=== PATIENT | female | born 1995 | race Caucasian/White ===

== ENCOUNTER 2018-05-12 10:27 | Observation (INO) | payer OTHER, MEDICAID ==
[~2018-05-12] VITALS: Ht 167.6 cm; Wt 87.5 kg
[2018-05-12 11:10] VITALS: BP 127/71
[2018-05-12 12:06] LABS: BASOPHILS % (AUTO) 0.5 % (0.0-5.0); EOSINOPHILS % (AUTO) 0.1 % (0.0-8.0); HEMATOCRIT 43.6 % (36-48); LYMPHOCYTES % (AUTO) 13.2 % (21.0-51.0); MEAN CORPUSCULAR HEMOGLOBIN 33.4 pg (27.0-33.0); MEAN CORPUSCULAR HGB CONC 32.9 g/dL (32.0-36.0); MEAN CORPUSCULAR VOLUME 101.6 fL (79-99); MONOCYTES % (AUTO) 5.1 % (3.0-13.0); NEUTROPHILS % (AUTO) 81.1 % (40.0-77.0); NUCLEATED RED BLOOD CELLS 0.1 % (0.0-0.19); PLATELET COUNT (AUTO) 194 K/uL (130-400); RED BLOOD CELL COUNT(AUTO) 4.29 MIL/uL (4.00-5.50); RED CELL DISTRIBUTION WIDTH 13.8 % (11.0-15.5); WHITE BLOOD COUNT (AUTO) 8.3 K/uL (4.8-10.8)
[2018-05-12] MEDS ORDERED: SULF1TAB3 PO (12:28)
[2018-05-12] MEDS ORDERED: ONDA4TAB10 PO (12:28)
[2018-05-12] MEDS: DEXTROSE 5%-LACTATED RINGERS 1,000 ML IV SCH ×3 (12:29→23:07)
[2018-05-12] MEDS: ONDANSETRON HCL 4 MG/2 ML VIAL IVP PRN ×2 (12:33→18:06)
[2018-05-12 12:57] LABS: CREATININE 0.7 mg/dL (0.5-1.5); POTASSIUM 4.1 mmol/L (3.5-5.1)
[2018-05-12 16:00] VITALS: BP 111/62
[2018-05-12 19:25] VITALS: BP 116/61
[2018-05-12 23:15] VITALS: BP 105/68
[2018-05-13 03:25] VITALS: BP 111/60
[2018-05-13] MEDS: DEXTROSE 5%-LACTATED RINGERS 1,000 ML IV SCH ×4 (03:45→22:53)
[2018-05-13 07:26] VITALS: BP 110/50
[2018-05-13 11:14] VITALS: BP 137/57
[2018-05-13] MEDS: ONDANSETRON HCL 4 MG/2 ML VIAL IVP PRN (13:47)
[2018-05-13 15:35] VITALS: BP 118/62
[2018-05-13 20:00] VITALS: BP 101/50
[2018-05-14 00:30] VITALS: BP 110/58
[2018-05-14 03:50] VITALS: BP 106/53
[2018-05-14] MEDS: DEXTROSE 5%-LACTATED RINGERS 1,000 ML IV SCH (04:12)
[2018-05-14 08:18] VITALS: BP 134/64
[2018-05-14 11:22] VITALS: BP 125/54
== END 2018-05-14 11:50 | disposition home or self-care (01) ==
LOC: EDH 10:27 → INTOOBSV 10:28 → OBSVTOIN 10:28 → WSH 10:28
PROVIDERS: ADMIT Specialist; ATTEND Specialist
DX: O21.9 Vomiting of pregnancy, unspecified (principal); Z3A.16 16 weeks gestation of pregnancy; Z23 Encounter for immunization
CPT/HCPCS: 36415; 80048; 85025; 96361 ×3; 96374; 96376 ×2; 99285; G0008; G0378 ×49; J2405 ×3; Q2038

== ENCOUNTER 2018-06-19 11:39 | Observation (INO) | payer OTHER, MEDICAID ==
[~2018-06-19] VITALS: Ht 167.6 cm; Wt 86.6 kg
[~2018-06-19 11:39] MED LIST: ONDA4TAB10 PO; SULF1TAB3 PO
[2018-06-19 14:02] LABS: APPEARANCE,URINE CLEAR (CLEAR); BILIRUBIN,URINE SMALL (NEGATIVE); COLOR,URINE YELLOW (YELLOW); GLUCOSE, URINE (UA) NEGATIVE (NEGATIVE); KETONES,URINE >=80 mg/dL (NEGATIVE); LEUKOCYTE ESTERASE ,URINE TRACE (NEGATIVE); NITRATE,URINE NEGATIVE (NEGATIVE); OCCULT BLOOD,URINE NEGATIVE (NEGATIVE); PROTEIN,URINE TRACE (NEGATIVE)
[2018-06-19] MEDS ORDERED: LACTATED RINGERS 1000ML IV SCH (14:15)
[2018-06-19] MEDS ORDERED: PROMETHAZINE HCL 25 MG/ML 1ML AMPULE IM SCH (14:15)
[2018-06-19 14:19] LABS: BACTERIA,URINE Rare /HPF (None Seen); MUCUS,URINE Rare LPF (None Seen); RBC,URINE 0-1 /HPF (0-1); SQUAMOUS EPITHELIAL CELL,UR Rare /HPF (0-2); WBC,URINE 0-1 /HPF (0-1)
[2018-06-19] MEDS ORDERED: PROMETHAZINE HCL 25 MG/ML 1ML AMPULE IM ONE (14:42)
[2018-06-19] MEDS ORDERED: LACTATED RINGERS 1000ML 1,000 ML IV SCH (15:15)
== END 2018-06-19 15:00 | disposition home or self-care (01) ==
LOC: LDH 11:56
PROVIDERS: ADMIT Specialist; ATTEND Specialist
DX: O21.2 Late vomiting of pregnancy (principal); R19.7 Diarrhea, unspecified; O26.893 Other specified pregnancy related conditions, third trimester; Z3A.22 22 weeks gestation of pregnancy
CPT/HCPCS: 81001; G0378 ×4; J2550; J7120; 96360; 96361

== ENCOUNTER 2018-09-13 15:49 | Observation (INO) | payer OTHER, MEDICAID ==
[~2018-09-13] VITALS: Ht 167.6 cm; Wt 95.7 kg
[2018-09-13 16:37] LABS: APPEARANCE,URINE Clear (CLEAR); BILIRUBIN,URINE Negative (NEGATIVE); COLOR,URINE Yellow (YELLOW); GLUCOSE, URINE (UA) Negative (NEGATIVE); KETONES,URINE 15 mg/dL (NEGATIVE); LEUKOCYTE ESTERASE ,URINE Moderate (NEGATIVE); NITRATE,URINE Negative (NEGATIVE); OCCULT BLOOD,URINE Negative (NEGATIVE); PROTEIN,URINE Negative (NEGATIVE)
[2018-09-13] MEDS: LACTATED RINGERS 1000ML IV SCH ×2 (16:48→17:20)
[2018-09-13 16:54] LABS: BACTERIA,URINE Rare /HPF (None Seen); RBC,URINE 0-1 /HPF (0-1)
[2018-09-13 16:55] LABS: SQUAMOUS EPITHELIAL CELL,UR Moderate /HPF (0-2)
[2018-09-13] MEDS ORDERED: TERBUTALINE SULFATE VIAL 1MG/ML SQ ONE (17:29)
[2018-09-13] MEDS ORDERED: TERBUTALINE SULFATE VIAL 1MG/ML SQ SCH (17:30)
== END 2018-09-13 18:45 | disposition home or self-care (01) ==
LOC: EDH 15:49 → INTOOBSV 15:50 → LDH 15:50
PROVIDERS: ADMIT Specialist; ATTEND Specialist
DX: O26.893 Other specified pregnancy related conditions, third trimester (principal); R10.9 Unspecified abdominal pain; Z3A.34 34 weeks gestation of pregnancy
CPT/HCPCS: 81001; 96372; 99284; G0378 ×3; J3105; J7120; 96360

== ENCOUNTER 2018-09-22 11:09 | Observation (INO) | payer OTHER, MEDICAID ==
[~2018-09-22] VITALS: Ht 167.6 cm; Wt 98.0 kg
[2018-09-22 11:59] LABS: APPEARANCE,URINE Clear (CLEAR); BASOPHILS % (AUTO) 0.6 % (0.0-5.0); BILIRUBIN,URINE Negative (NEGATIVE); COLOR,URINE Yellow (YELLOW); EOSINOPHILS % (AUTO) 0.6 % (0.0-8.0); GLUCOSE, URINE (UA) Negative (NEGATIVE); HEMATOCRIT 35.2 % (36-48); KETONES,URINE Trace mg/dL (NEGATIVE); LEUKOCYTE ESTERASE ,URINE Moderate (NEGATIVE); LYMPHOCYTES % (AUTO) 18.5 % (21.0-51.0); MEAN CORPUSCULAR HEMOGLOBIN 30.1 pg (27.0-33.0); MEAN CORPUSCULAR HGB CONC 33.9 g/dL (32.0-36.0); MEAN CORPUSCULAR VOLUME 88.7 fL (79-99); MONOCYTES % (AUTO) 6.8 % (3.0-13.0); NEUTROPHILS % (AUTO) 73.5 % (40.0-77.0); NITRATE,URINE Negative (NEGATIVE); OCCULT BLOOD,URINE Negative (NEGATIVE); PLATELET COUNT (AUTO) 234 K/uL (130-400); PROTEIN,URINE Negative (NEGATIVE); RED BLOOD CELL COUNT(AUTO) 3.97 MIL/uL (4.00-5.50); RED CELL DISTRIBUTION WIDTH 13.6 % (11.0-15.5); WHITE BLOOD COUNT (AUTO) 8.4 K/uL (4.8-10.8)
[2018-09-22 12:10] LABS: INR 0.87 (0.85-1.15); PARTIAL THROMBOPLASTIN TIME 26.3 SEC (26.3-35.5); PROTHROMBIN TIME 9.2 SEC (9.6-11.6)
[2018-09-22 12:15] LABS: CREATININE 0.8 mg/dL (0.5-1.5); POTASSIUM 4.1 mmol/L (3.5-5.1)
[2018-09-22 12:16] LABS: BACTERIA,URINE Moderate /HPF (None Seen); RBC,URINE 0-1 /HPF (0-1)
[2018-09-22 12:20] LABS: ALBUMIN 2.6 g/dL (3.5-5.0); BILIRUBIN,TOTAL 0.2 mg/dL (0.2-1.0); TOTAL PROTEIN, SERUM 6.4 g/dL (6.0-8.3); URIC ACID 4.2 mg/dL (2.6-7.2)
[2018-09-22] MEDS ORDERED: ACETAMINOPHEN-CODEINE 300/30MG TAB PO SCH (13:00)
== END 2018-09-22 14:42 | disposition home or self-care (01) ==
LOC: LDH 11:09
PROVIDERS: ADMIT Specialist; ATTEND Specialist
DX: O26.893 Other specified pregnancy related conditions, third trimester (principal); R51 Headache; R03.0 Elevated blood-pressure reading, without diagnosis of hypertension; Z3A.35 35 weeks gestation of pregnancy; Z79.01 Long term (current) use of anticoagulants
CPT/HCPCS: 36415; 59025; 76819; 80053; 81001; 84550; 85025; 85384; 85610; 85730; G0378 ×5

== ENCOUNTER 2018-09-26 03:53 | Observation (INO) | payer OTHER, MEDICAID ==
[~2018-09-26] VITALS: Ht 167.6 cm; Wt 98.4 kg
[2018-09-26] MEDS ORDERED: LACTATED RINGERS 1000ML 1,000 ML IV SCH (04:15)
[2018-09-26 04:38] LABS: APPEARANCE,URINE Cloudy (CLEAR); BILIRUBIN,URINE Negative (NEGATIVE); COLOR,URINE Yellow (YELLOW); GLUCOSE, URINE (UA) Negative (NEGATIVE); KETONES,URINE Negative (NEGATIVE); LEUKOCYTE ESTERASE ,URINE Large (NEGATIVE); NITRATE,URINE Negative (NEGATIVE); OCCULT BLOOD,URINE Negative (NEGATIVE); PROTEIN,URINE Negative (NEGATIVE)
[2018-09-26 04:45] LABS: AMPHET/METH SCREEN,URINE NEGATIVE (NEGATIVE); BARBITURATE SCREEN, URINE NEGATIVE (NEGATIVE); BENZODIAZEPINES SCREEN,URINE NEGATIVE (NEGATIVE); CANNABINOID SCREEN,URINE NEGATIVE (NEGATIVE); COCAINE SCREEN,URINE NEGATIVE (NEGATIVE); OPIATE SCREEN,URINE NEGATIVE (NEGATIVE); PHENCYCLIDINE SCREEN,URINE NEGATIVE (NEGATIVE)
[2018-09-26 04:48] LABS: BACTERIA,URINE Few /HPF (None Seen); MUCUS,URINE Few LPF (None Seen); RBC,URINE None Seen /HPF (0-1); SQUAMOUS EPITHELIAL CELL,UR Many /HPF (0-2)
[2018-09-26] MEDS ORDERED: TERBUTALINE SULFATE VIAL 1MG/ML SQ SCH (05:30)
[2018-09-26] MEDS ORDERED: BUTORPHANOL TARTRATE 2 MG/ML IVP ONE (05:30)
[2018-09-26] MEDS ORDERED: TERBUTALINE SULFATE VIAL 1MG/ML SQ ONE (05:43)
[2018-09-26] MEDS ORDERED: ACETAMINOPHEN-CODEINE 300/30MG TAB PO SCH (08:45)
[2018-09-26] MEDS ORDERED: CEFTRIAXONE SODIUM 1 GM IVP ONE (08:45)
[2018-09-26] MEDS ORDERED: CEFTRIAXONE SODIUM 2 GM VIAL IVP SCH (08:45)
== END 2018-09-26 10:45 | disposition home or self-care (01) ==
LOC: EDH 03:53 → LDH 03:54
PROVIDERS: ADMIT Specialist; ATTEND Specialist
DX: O62.9 Abnormality of forces of labor, unspecified (principal); O26.893 Other specified pregnancy related conditions, third trimester; R10.9 Unspecified abdominal pain; O99.89 Other specified diseases and conditions complicating pregnancy, childbirth and the puerperium; M54.9 Dorsalgia, unspecified; Z3A.36 36 weeks gestation of pregnancy
CPT/HCPCS: 80305; 81001; 96372; 96374; 99284; G0378 ×7; J0696 ×2; J3105; J7120; 96360; 96361

== ENCOUNTER 2018-10-03 01:06 | Inpatient (IN) | payer OTHER, MEDICAID | END 2018-10-04 16:35 | disposition home or self-care (01) | LOC: EDH 01:06 → LDH 01:07 → WSH 13:55 | PROC: 10E0XZZ Delivery of Products of Conception, External Approach (ICD-10-PCS; principal; ~2018-10-03) | DX: O80 Encounter for full-term uncomplicated delivery (principal); Z37.0 Single live birth; Z3A.00 Weeks of gestation of pregnancy not specified ==

== ENCOUNTER 2021-01-14 07:05 | Emergency (ER) | payer OTHER, MEDICAID ==
[~2021-01-14] VITALS: Ht 167.6 cm; Wt 97.5 kg
[2021-01-14 08:57] VITALS: BP 149/83
[2021-01-14] MEDS ORDERED: MOXIFLOXACIN HCL 0.5% 3ML DROPS OD SCH (10:00)
[2021-01-14] MEDS ORDERED: IBUPROFEN 600 MG TABLET PO SCH (10:00)
[2021-01-14] MEDS ORDERED: MOXIOS OD (10:04)
[2021-01-14] MEDS ORDERED: IBUP-2070 PO (10:04)
[2021-01-14 10:22] VITALS: BP 127/78
[2021-01-14 10:55] VITALS: BP 127/78
== END 2021-01-14 11:07 | disposition home or self-care (01) ==
LOC: EDH 07:26
DX: H00.031 Abscess of right upper eyelid (principal); Z79.899 Other long term (current) drug therapy

== ENCOUNTER 2022-02-16 22:18 | Emergency (ER) | payer BC, OTHER ==
[~2022-02-16] VITALS: Ht 167.6 cm; Wt 97.1 kg
[~2022-02-16 22:18] MED LIST changes: +IBUP-2070 PO; +MOXIOS OD; -ONDA4TAB10 PO; -SULF1TAB3 PO
[2022-02-17] MEDS ORDERED: KETOROLAC 30MG VIAL (30MG/ML) IVP ONE (03:30)
[2022-02-17] MEDS ORDERED: ONDANSETRON 4MG INJ IVP ONE (03:30)
[2022-02-17 03:46] VITALS: BP 129/79
[2022-02-17 03:47] LABS: BASOPHILS % (AUTO) 0.5 % (0.0-5.0); EOSINOPHILS % (AUTO) 1.5 % (0.0-8.0); LYMPHOCYTES % (AUTO) 19.4 % (21.0-51.0); MEAN CORPUSCULAR HEMOGLOBIN 31.5 pg (27.0-33.0); MEAN CORPUSCULAR HGB CONC 33.2 g/dL (32.0-36.0); MEAN CORPUSCULAR VOLUME 94.9 fL (79-99); MONOCYTES % (AUTO) 7.8 % (3.0-13.0); NEUTROPHILS % (AUTO) 70.2 % (40.0-77.0); PLATELET COUNT (AUTO) 422 K/uL (130-400); RED BLOOD CELL COUNT(AUTO) 4.32 MIL/uL (4.00-5.50); RED CELL DISTRIBUTION WIDTH 11.8 % (11.0-15.5); WHITE BLOOD COUNT (AUTO) 11.1 K/uL (4.8-10.8)
[2022-02-17 03:58] LABS: CREATININE 0.8 mg/dL (0.5-1.5); POTASSIUM 3.4 mmol/L (3.5-5.1)
[2022-02-17 04:02] LABS: APPEARANCE,URINE CLEAR (CLEAR); BILIRUBIN,URINE SMALL (NEGATIVE); COLOR,URINE DARK YELLOW (YELLOW); GLUCOSE, URINE (UA) NEGATIVE (NEGATIVE); KETONES,URINE 5 mg/dL (NEGATIVE); LEUKOCYTE ESTERASE ,URINE TRACE (NEGATIVE); NITRATE,URINE NEGATIVE (NEGATIVE); OCCULT BLOOD,URINE TRACE-INTACT (NEGATIVE); PH,URINE 5.5 (5.0-8.0); PROTEIN,URINE NEGATIVE (NEGATIVE)
[2022-02-17 04:04] LABS: HCG,QUAL RESULT NEGATIVE (NEGATIVE)
[2022-02-17 04:05] LABS: ALBUMIN 3.2 g/dL (3.5-5.0); BILIRUBIN,TOTAL 0.3 mg/dL (0.2-1.0); TOTAL PROTEIN, SERUM 8.2 g/dL (6.0-8.3)
[2022-02-17 04:23] LABS: BACTERIA,URINE None Seen /HPF (None Seen); MUCUS,URINE Few LPF (None Seen); SQUAMOUS EPITHELIAL CELL,UR Rare /HPF (0-2)
[2022-02-17] MEDS ORDERED: IBUP-2070 PO (05:02)
[2022-02-17] MEDS ORDERED: ONDA4TAB10 PO (05:02)
[2022-02-17] MEDS ORDERED: HYOS-14 PO (05:02)
== END 2022-02-17 05:57 | disposition home or self-care (01) ==
LOC: EDH 22:18
DX: K80.50 Calculus of bile duct without cholangitis or cholecystitis without obstruction (principal); Z88.1 Allergy status to other antibiotic agents; Z98.890 Other specified postprocedural states
CPT/HCPCS: 36415; 76705; 80053; 81001; 81025; 82150; 85025; 96374; 96375; 99284; J1885; J2405

== ENCOUNTER 2022-05-07 08:23 | Emergency (ER) | payer BC ==
[~2022-05-07] VITALS: Ht 167.6 cm; Wt 105.2 kg
[~2022-05-07 08:23] MED LIST changes: +HYOS-14 PO; +ONDA4TAB10 PO
[2022-05-07 08:53] LABS: BASOPHILS % (AUTO) 0.3 % (0.0-5.0); EOSINOPHILS % (AUTO) 0.9 % (0.0-8.0); HEMATOCRIT 47.3 % (36-48); LYMPHOCYTES % (AUTO) 4.7 % (21.0-51.0); MEAN CORPUSCULAR HEMOGLOBIN 31.7 pg (27.0-33.0); MEAN CORPUSCULAR HGB CONC 34.2 g/dL (32.0-36.0); MEAN CORPUSCULAR VOLUME 92.6 fL (79-99); MONOCYTES % (AUTO) 4.9 % (3.0-13.0); PLATELET COUNT (AUTO) 264 K/uL (130-400); RED BLOOD CELL COUNT(AUTO) 5.11 MIL/uL (4.00-5.50); RED CELL DISTRIBUTION WIDTH 12.8 % (11.0-15.5); WHITE BLOOD COUNT (AUTO) 16.2 K/uL (4.8-10.8)
[2022-05-07 09:02] LABS: CREATININE 0.9 mg/dL (0.5-1.5); POTASSIUM 4.1 mmol/L (3.5-5.1)
[2022-05-07 09:06] LABS: ALBUMIN 3.9 g/dL (3.5-5.0); TOTAL PROTEIN, SERUM 7.8 g/dL (6.0-8.3)
[2022-05-07 09:17] LABS: APPEARANCE,URINE CLOUDY (CLEAR); BILIRUBIN,URINE NEGATIVE (NEGATIVE); COLOR,URINE YELLOW (YELLOW); GLUCOSE, URINE (UA) NEGATIVE (NEGATIVE); KETONES,URINE NEGATIVE (NEGATIVE); LEUKOCYTE ESTERASE ,URINE 500 Leu/uL (NEGATIVE); NITRATE,URINE NEGATIVE (NEGATIVE); OCCULT BLOOD,URINE MODERATE (NEGATIVE); PROTEIN,URINE 20 mg/dL (NEGATIVE); UROBILINOGEN,URINE 0.2 mg/dL (0.2-1.0)
[2022-05-07 09:20] LABS: HCG,QUALITATIVE URINE NEGATIVE (NEGATIVE)
[2022-05-07] MEDS ORDERED: 0.9%NACL 1000ML 1,000 ML IV ONE ×2 (09:30→09:52)
[2022-05-07] MEDS ORDERED: ONDANSETRON 4MG INJ IVP ONE (09:30)
[2022-05-07] MEDS ORDERED: KETOROLAC 30MG VIAL (30MG/ML) IVP ONE (09:30)
[2022-05-07 09:39] LABS: BACTERIA,URINE FEW /HPF (None Seen); MUCUS,URINE RARE LPF (None Seen); RBC,URINE 51-100 /HPF (0-1); SQUAMOUS EPITHELIAL CELL,UR MOD /HPF (0-2)
[2022-05-07] MEDS ORDERED: ONDANSETRON 4MG INJ ONE (09:51)
[2022-05-07] MEDS ORDERED: KETOROLAC 30MG VIAL (30MG/ML) ONE (09:52)
[2022-05-07] MEDS ORDERED: CEFTRIAXONE 1G VIAL IVP ONE (10:30)
[2022-05-07] MEDS ORDERED: CEFTRIAXONE 1G VIAL ONE (10:42)
[2022-05-07] MEDS ORDERED: ONDA4TAB10 PO (10:58)
[2022-05-07] MEDS ORDERED: SULF1TAB42 PO (10:58)
[2022-05-07] MEDS ORDERED: DICY20TA2 PO (10:58)
[2022-05-07] MEDS ORDERED: IBUP-2070 PO (10:58)
[2022-05-07 11:32] VITALS: BP 132/69
== END 2022-05-07 12:23 | disposition home or self-care (01) ==
LOC: EDH 08:23
DX: K80.50 Calculus of bile duct without cholangitis or cholecystitis without obstruction (principal); N39.0 Urinary tract infection, site not specified; Z88.1 Allergy status to other antibiotic agents; Z79.899 Other long term (current) drug therapy; Z98.890 Other specified postprocedural states
CPT/HCPCS: 99284; 96374; 76705; 96375; 96361; 82150; 80053; 83690; 85025; 87088; 81001; 81025; 36415; J7030; J0696; J2405; J1885

== ENCOUNTER 2023-08-29 08:31 | Emergency (ER) | payer OTHER, MEDICAID ==
[~2023-08-29] VITALS: Ht 167.6 cm; Wt 95.3 kg
[~2023-08-29 08:31] MED LIST changes: +DICY20TA2 PO; +SULF1TAB42 PO
[2023-08-29] MEDS ORDERED: NAPROXEN 500 MG TABLET PO ONE (09:00)
[2023-08-29 11:47] VITALS: BP 133/78; PULSE 78; RESP 18; O2SAT 98
== END 2023-08-29 11:47 | disposition home or self-care (01) ==
LOC: EDH 08:31
DX: S00.83XA Contusion of other part of head, initial encounter (principal); H57.12 Ocular pain, left eye; R60.9 Edema, unspecified; Z79.899 Other long term (current) drug therapy; Z98.890 Other specified postprocedural states; Z88.8 Allergy status to other drugs, medicaments and biological substances; X58.XXXA Exposure to other specified factors, initial encounter; Y93.79 Activity, other specified sports and athletics; Y92.89 Other specified places as the place of occurrence of the external cause; Y99.8 Other external cause status
CPT/HCPCS: 70150; 81025